=== PATIENT | female | born 1940 | race Caucasian/White ===

== ENCOUNTER 2019-02-07 05:06 | Emergency (ER) | payer MEDICARE, OTHER ==
[2019-02-07] MEDS ORDERED: Ondansetron 4 MG/2 ML SDV IVPUSH ONE (05:25)
[2019-02-07] MEDS ORDERED: LORazepam 2 MG/ML SDV IVPUSH ONE (05:30)
--- NOTE | 2019-02-07 13:18 | CR ---
Date of Service: 02/07/19 Clinical Data: SOB - nausea. PA CHEST: No priors. The heart is mildly enlarged. The aorta is calcified and ectatic. The pulmonary vasculature is mildly prominent suggesting the possibility of pulmonary venous congestion. There is mild soft tissue fullness in the right infrahilar region suggesting the possibility of a mass or adenopathy. Chest CT is recommended. There are minimal atelectatic changes in the left lung base. The lungs are otherwise clear. No pneumothorax. No pleural effusions. [id number] [facility]
--- NOTE | 2019-02-07 15:58 | ER ---
HISTORY OF PRESENT ILLNESS: A 78-year-old lady who comes in with her and son with complaints of nausea and not feeling well. She states it started last evening. She became a little lightheaded. She decided to go to bed early. She stated that she felt like she saw some flashing lights in her vision. She woke up in the middle of the night nauseated and is worried that something is wrong. The patient has not had any falls or injuries. She has not been sick recently. She has not had any change in medications. They are up here for the weekend to stay at the [place]. PAST MEDICAL HISTORY: Does include coronary artery disease. She tells me she had 3 stents placed in 2000 and has been good since. OBJECTIVE: GENERAL APPEARANCE: The patient is awake and alert. She is quite anxious. VITAL SIGNS: Reviewed. Blood pressure 157/86, respirations 24, she is afebrile, O2 saturations are 98%. Lungs are clear to auscultation. CARDIAC: Heart sounds distinct without murmurs. Oral, mucous membranes moist. Tonsils not enlarged or injected. Pharynx not inflamed. ABDOMEN: Soft, nontender. SKIN: Warm and dry. INITIAL TREATMENT: Zofran 4 mg was given sublingually. An IV was started as well. An EKG was done, which shows a normal sinus rhythm. LABS: Include a CBC which is normal. Comprehensive metabolic panel is also unremarkable. Troponin is normal. After the initial evaluation, I also gave the patient 0.5 mg of Ativan IV and this calmed her down significantly. The patient has been resting quietly but awake and alert since then. The nausea has resolved and she states she feels fine. DIAGNOSIS: Anxiety. TREATMENT PLAN: I advised the patient that she has had a negative workup. Her heart workup is normal. Chest x-ray does show a small nodule in the right lower lobe. I advised the patient to follow up with her primary care provider in the next week or two to have a repeat chest x-ray to re-evaluate that. The patient did not have any chest pain or pressure symptoms. She stated she just did not feel right and was worried. She did not want anything to be wrong. The patient and her family have no further questions. BUSHRA/[id number] /[id number]
== END 2019-02-07 06:36 | disposition home or self-care (01) ==
LOC: LB.ED 05:06
DX: F41.9 Anxiety disorder, unspecified (principal); I25.10 Atherosclerotic heart disease of native coronary artery without angina pectoris
CPT/HCPCS: 36415; 71045; 80053; 84484; 85025; 93005; 96374; 96375; 99283; J2060; J2405